=== PATIENT | male | born 1970 | race Caucasian/White ===

== ENCOUNTER 2018-12-11 11:17 | Emergency (ER) | payer OTHER ==
[2018-12-11 11:51] LABS: ABS Eosinophils 0.1 10^3/ul (0-0.6); ABS Lymphocytes 1.5 10^3/ul (1.0-4.8); ABS Monocytes 0.3 10^3/ul (0-0.8); ABS Neutrophils 3.5 10^3/ul (1.5-7.7); Eosinophil % 1.5 %; Hematocrit 44 % (42-52); Hemoglobin 15.8 g/dL (14.0-18.0); Lymphocyte % 27.9 %; Mean Corpuscular HGB Conc 36 g/dL (31-36); Mean Corpuscular Hemoglobin 32 pg (27-31); Mean Corpuscular Volume 90 fL (80-94); Mean Platelet Volume 8.6 fL (7.4-10.4); Platelet Count 200 10^3/uL (150-450); Red Blood Count 4.94 10^6 /uL (4.18-5.48); Red Cell Distribution Width 13 % (10-15); White Blood Count 5.4 10^3/uL (3.5-10.8)
[2018-12-11 12:01] LABS: INR 1.02 (0.82-1.09)
--- NOTE | 2018-12-11 12:17 | ED ---
HPI Chest Pain - HPI Summary HPI Summary: Pt. is a 48 y.o male who presents to the ER for chest pain x 3 days. Pt. states pain is located to his upper center chest and is a pressure sensation. He notes SOB with ambulation. Pt. denies past medical hx. He denies hx of smoking, HTN, HLD, CAD. Pt. denies family hx of CAD. Pt. states he has had similar sxs in the past and had a stress test years ago that was normal. Pt. denies any injuries or falls. Pt. states he has been taking motrin and asa the last few days which has helped with pain. Pt. states currently in the ER he is pain free. Pt. otherwise denies fever, cough, abd. pain, V/D, urinary sxs. Sxs are moderate in severity. Pt. notes he has been doing a lot of driving lately as he works/lives in [place] as well. Denies leg swelling or pain. - History of Current Complaint Chief Complaint: EDChestPainROMI Time Seen by Provider: 12/11/18 12:07 Hx Obtained From: Patient Pain Intensity: 0 - Allergy/Home Medications Allergies/Adverse Reactions: Allergies Allergy/AdvReac Type Severity Reaction Status Date / Time No Known Allergies Allergy Verified 09/18/15 21:01 Home Medications: Home Medications NK [No Home Medications Reported] 12/11/18 [History Confirmed 12/11/18] PMH/Surg Hx/FS Hx/Imm Hx Previously Healthy: Yes Neurological History: Reports: Hx Migraine Infectious Disease History: No Infectious Disease History: Reports: Traveled Outside the [place] in Last 30 Days - Family History Known Family History: Positive: Unknown Negative: Cardiac Disease - Social History Occupation: Employed Full-time Lives: With Family Alcohol Use: None Substance Use Type: Reports: None Smoking Status (MU): Never Smoked Tobacco Review of Systems Constitutional: Negative Negative: Fever, Chills ENT: Negative Positive: Chest Pain. Negative: Palpitations Positive: Shortness Of Breath. Negative: Cough Gastrointestinal: Negative Negative: Abdominal Pain, Vomiting, Diarrhea Musculoskeletal: Negative Skin: Negative Neurological: Negative All Other Systems Reviewed And Are Negative: Yes Physical Exam Triage Information Reviewed: Yes Vital Signs On Initial Exam: Initial Vitals Temp Pulse Resp BP Pulse Ox 96.9 F 71 14 155/84 100 12/11/18 11:22 12/11/18 11:22 12/11/18 11:22 12/11/18 11:22 12/11/18 11:22 Vital Signs Reviewed: Yes Appearance: Positive: Well-Appearing - Pt. sitting up in bed in NAD. Pleasant. Skin: Positive: Warm, Dry Head/Face: Positive: Normal Head/Face Inspection Eyes: Positive: Normal, EOMI Neck: Positive: Supple Respiratory/Lung Sounds: Positive: Clear to Auscultation, Breath Sounds Present Cardiovascular: Positive: Normal, RRR Musculoskeletal: Positive: Normal, Strength/ROM Intact. Negative: Edema Left, Edema Right Neurological: Positive: Normal, CN Intact II-III Psychiatric: Positive: Affect/Mood Appropriate Diagnostics - Vital Signs Vital Signs Temp Pulse Resp BP Pulse Ox 12/11/18 11:22 96.9 F 71 14 155/84 100 - Laboratory Lab Results: Lab Results 12/11/18 12/11/18 12/11/18 Range/Units 11:45 11:45 11:45 WBC 5.4 (3.5-10.8) 10^3/uL RBC 4.94 (4.18-5.48) 10^6 /uL Hgb 15.8 (14.0-18.0) g/dL Hct 44 (42-52) % MCV 90 (80-94) fL MCH 32 H (27-31) pg MCHC 36 (31-36) g/dL RDW 13 (10-15) % Plt Count 200 (150-450) 10^3/uL MPV 8.6 (7.4-10.4) fL Neut % (Auto) 64.1 % Lymph % (Auto) 27.9 % Hendricks % (Auto) 6.0 % Eos % (Auto) 1.5 % Baso % (Auto) 0.5 % Absolute Neuts (auto) 3.5 (1.5-7.7) 10^3/ul Absolute Lymphs (auto) 1.5 (1.0-4.8) 10^3/ul Absolute Monos (auto) 0.3 (0-0.8) 10^3/ul Absolute Eos (auto) 0.1 (0-0.6) 10^3/ul Absolute Basos (auto) 0.0 (0-0.2) 10^3/ul Absolute Nucleated RBC 0.0 10^3/ul Nucleated RBC % 0.0 INR (Anticoag Therapy) 1.02 (0.82-1.09) Sodium Pending Potassium Pending Chloride Pending Carbon Dioxide Pending Anion Gap Pending BUN Pending Creatinine Pending Est GFR ( Amer) Pending Est GFR (Non-Af Amer) Pending BUN/Creatinine Ratio Pending Glucose Pending Calcium Pending Total Bilirubin Pending AST Pending ALT Pending Alkaline Phosphatase Pending Troponin I 0.00 (<0.04) ng/mL Total Protein Pending Albumin Pending Globulin Pending Albumin/Globulin Ratio Pending Result Diagrams: 12/11/18 11:45 12/11/18 11:45 Lab Statement: Any lab studies that have been ordered have been reviewed, and results considered in the medical decision making process. Chest Pain Course/Dx - Course Course Of Treatment: Pt. presenting with CP x 3 days. Currently CP free. BP initially elevated but improved with second reading. Normal HR and O2. ECG done at 1119 shows a sinus rhythm of 63bpm, normal axis, no STEMI, unchanged from prior tracing. Labs including negative troponin and ddimer were normal. HEART score is one, low risk. Will dc home to fu with PCP closely for further evaluation and testing. Pt. will return to ER if sxs change or worsen. Pt. understands and agrees with plan. - Chest Pain Differential Diagnosis/HQI/PQRI: Acute AL, ACS, Angina, Chest Wall, Lower Respiratory Infection, Pulmonary Edema - Diagnoses Provider Diagnoses: Atypical chest pain Discharge - Sign-Out/Discharge Documenting (check all that apply): Patient Departure Patient Received Moderate/Deep Sedation with Procedure: No - Discharge Plan Condition: Good Disposition: HOME Patient Education Materials: Chest Pain (ED) Referrals: Shirley Amezcua MD [Primary Care Provider] - Additional Instructions: Schedule a follow up appointment with your PCP for further evaluation within one week Return to ER if symptoms change or worsen - Billing Disposition and Condition Condition: GOOD Disposition: Home
[2018-12-11 12:26] LABS: Albumin 4.3 g/dL (3.2-5.2); Albumin/Globulin Ratio 1.9 (1-3); BUN/Creatinine Ratio 14.7 (8-20); Calcium 9.1 mg/dL (8.6-10.3); EGFR Non-African American 71.9 (>60); Globulin 2.3 g/dL (2-4); Potassium 4.3 mmol/L (3.5-5.0); Total Bilirubin 0.5 mg/dL (0.2-1.0); Total Protein 6.6 g/dL (6.4-8.9)
[2018-12-11 13:25] VITALS: BP 135/85
== END 2018-12-11 13:25 | disposition home or self-care (01) ==
LOC: ED 11:17
DX: R07.89 Other chest pain (principal); R06.02 Shortness of breath
CPT/HCPCS: 36415; 71045; 80053; 84484; 85025; 85379; 85610; 93005; 99282